=== PATIENT | male | born 1940 | race Caucasian/White ===

== ENCOUNTER → 2017-03-20 | Outpatient (CLI) | payer BC ==
[~2017-03-20] MED LIST: ALTACE PO; ALTACE10 M2 PO; AMLODIPINE BESYL5 MG PO; ASPIRIN PO; CENTRUM SILVER1 EAC4 PO; CERTAGEN PO; CLOPIDOGREL75 MG PO; COENZYME Q10; COQ10-VIT E 201 EACH PO; COREG PO; COREG12.5 MG PO; FISH OIL 1,0001 CAP PO; LAMICTAL PO; LIPITOR PO; LIPITOR40 MG PO; LO-DOSE ASPIRIN81 M1 PO; LOVAZA1 GM PO; PLAVIX PO; PRILOSEC PO; PSYLLIUM
[2017-03-20 12:01] LABS: HEMATOCRIT 44.5 % (38.0-50.0); HEMOGLOBIN 14.9 gm/dL (13.0-16.0); MEAN CELL VOLUME 101.4 FL (83-96); MEAN CORPUSCULAR HGB CONC 33.5 g/dL (30-36); MEAN PLATELET VOLUME 9.2 FL (6.5-11.5); RED BLOOD COUNT 4.38 X10e (3.90-5.60); RED CELL DISTRIBUTION WIDTH 12.9 % (11.0-15.5); WHITE BLOOD COUNT 5.5 X10e3 (4.0-10.5)
[2017-03-20 12:30] LABS: BUN/CREATININE RATIO 17.5; CALCIUM SERUM 9.6 mg/dL (8.4-10.2); CREATININE SERUM 0.8 mg/dL (0.6-1.4); GLOM FILT RATE Estimated 85.6 mL/min (>60); POTASSIUM 4.5 mmol/L (3.5-5.1)
[2017-03-20 12:34] LABS: URINE APPEARANCE CLEAR; URINE BILIRUBIN NEG (NEG); URINE BLOOD NEG (NEG); URINE COLOR YELLOW; URINE GLUCOSE NEG (NEG); URINE KETONE NEG (NEG); URINE LEUKOCYTE ESTERASE NEG (NEG); URINE NITRATE NEG (NEG); URINE PH 6.5 (5-8); URINE PROTEIN NEG (NEG); URINE SPECIFIC GRAVITY 1.022 (1.003-1.035)
[2017-03-20 12:47] LABS: URINE SOURCE CLEAN CATCH
[2017-03-20 12:48] LABS: CULTURE INDICATED? NO
== END | disposition home or self-care (01) ==
LOC: CAMB 10:25
PROVIDERS: Orthopaedic Surgery
DX: Z01.812 Encounter for preprocedural laboratory examination (principal); M19.071 Primary osteoarthritis, right ankle and foot
CPT/HCPCS: 36415; 80048; 81003; 85027; 87070

== ENCOUNTER 2017-04-03 05:16 | Inpatient (IN) | payer BC ==
[~2017-04-03] VITALS: Ht 180.3 cm; Wt 86.2 kg
--- NOTE | ~2017-04-03 | EKG ---
PATIENT: BETTYE CANCHOLA UNIT #: [id number] Ventricular Rate: 70 BPM Atrial Rate: 76 BPM QRS Duration: 132 ms Q-T Interval: 406 ms QTC Calculation(Bezet): 438 ms Calculated R [place]: -8 degrees Calculated T [place]: 10 degrees Diagnosis Line: Atrial fibrillation Diagnosis Line: Non-specific intra-ventricular conduction block Diagnosis Line: Nonspecific T wave abnormality , probably Diagnosis Line: digitalis effect Diagnosis Line: Abnormal ECG Diagnosis Line: No previous ECGs available Diagnosis Line: Confirmed by KASSIE GOMES MD ([id number]) on 04/04/2017 Diagnosis Line: 7:27:31 PM INTERPRETING MD: MIREYA ROYAL
--- NOTE | ~2017-04-03 | HP ---
Unit #: [id number] #: [id number] Patient: BETTYE CANCHOLA [id number] [facility]. [place], [place] [address] [id number] I MR#: [id number] NAME: BETTYE CANCHOLA. ROOM: Age: Sex: M Admission Date: 04/03/2017 : 1940 Attending Physician: Oly Hdez M.D. Primary Care Physician: Keon Garcia M.D. HISTORY AND PHYSICAL CHIEF COMPLAINT Right foot and ankle pain. HISTORY OF PRESENT ILLNESS The patient is a 77-year-old male with right ankle pain and right foot pain, which has been unresponsive to conservative care. 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 He now has pain when walking more than about 100 yards. He has pain with activities of daily living. He has failed bracing and treatment in a Cam Walker Boot. He has also been treated with an injection into the ankle joint. He has 8 degrees of clinical hindfoot varus. X-rays show endstage arthritis of the right ankle with [id number] opposition of the superior medial tibiotalar joint space, as well as significant uncovering of the talonavicular joint measuring 50%. He is able to do a single heel rise, and this demonstrates that his posterior tibial tendon is intact. He has failed nonoperative care and is, therefore, admitted for elective right total ankle arthroplasty, talonavicular joint fusion and possible medial malleolar osteotomy with Brostrom lateral ankle reconstruction. PAST MEDICAL HISTORY Remarkable for atherosclerosis, basal cell carcinoma, coronary ostial stenosis, diabetes mellitus, hypertension. PAST SURGICAL HISTORY Coronary artery bypass graft, coronary artery stent placement. HOME MEDICATIONS Aspirin, atorvastatin, carvedilol, Plavix, coenzyme Q10, hydrocodone, lamotrigine, multivitamins, omega 3 fatty acids, ramipril, Viagra. ALLERGIES None. SOCIAL HISTORY The patient is a former smoker. He is . He denies illicit drug use. He drinks alcohol socially. FAMILY HISTORY Congestive heart failure. REVIEW OF SYSTEMS Unremarkable. PHYSICAL EXAMINATION Unit #: [id number] #: [id number] Patient: BETTYE CANCHOLA HEIGHT/WEIGHT: Height 5'11", weight 197 pounds. GENERAL: This is a well-developed, well-nourished male in no acute distress. HEENT: Pharynx is clear. NECK: The neck is supple without masses. HEART: Heart exam reveals a regular sinus rhythm without murmurs or gallops. LUNGS: The lungs are clear. ABDOMEN: The abdomen is soft and nontender without masses or organomegaly. EXTREMITIES: Evaluation of the right foot shows a pes planus deformity. The heel, however, is surprisingly in 8 degrees of varus. Sensation is normal. Pulses are normal. Motor exam is normal. Posterior tibial tendon is intact. He is able to do a single heel rise. DIAGNOSTIC STUDIES IMAGING: Standing x-rays of the right foot show pes planus deformity with 50% uncovering of the talonavicular joint, a relatively well-maintained lateral talar first metatarsal angle, 15-degree calcaneal pitch and 5 mm medial cuneiform height. Standing x-rays of the right ankle show [id number] opposition of the medial tibiotalar joint with 20 degrees of tibiotalar joint tilt with respect to the long axis of the tibia. The patient does have some contained ankle varus with 13 degrees of tibiotalar joint varus. There is significant uncovering of the talar head on the AP view of the ankle x-ray. IMPRESSION 1. 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 2. Right forefoot abduction secondary to significant uncovering of the talonavicular joint. PLAN The patient has failed nonoperative care. He is, therefore, admitted for elective right total ankle arthroplasty using the Nitza Talaris implant. We will also perform a talonavicular fusion to address his midfoot deformity. He will require Brostrom lateral ankle ligamentous reconstruction for his (1) lateral ankle ligaments. Finally, he may require a lengthening medial malleolar osteotomy since his medial malleolus is quite horizontal on the AP view of his ankle x-ray. This procedure was described in detail, along with the risks of bleeding, infection, nerve damage, the need for further surgery in the future, prolonged recovery time, deep venous thrombosis, pulmonary embolism, loosening of the prosthesis, infection of the prosthesis, need for multiple revision surgeries to include fusion, recurrent deformity, wound healing problems. He understands the above risks and agrees to proceed. Dictated by Justin Hylton/lenny TD: 04/02/2017 14:40 JOB #: [id number] Unit #: [id number] #: [id number] Patient: BETTYE CANCHOLA HISTORY AND PHYSICAL Page 1 of 1 X Pedro Hdez MD X HISTORY AND PHYSICAL
--- NOTE | ~2017-04-03 | CO ---
Unit #: [id number] #: [id number] Patient: BETTYE CANCHOLA [id number] [address] [place], [place] [address] [id number] I MR#: [id number] NAME: BETTYE CANCHOLA. ROOM: [facility] Age: 77 Sex: M Admission Date: 04/03/2017 : 1940 Attending Physician: Oly Hdez M.D. Primary Care Physician: Keon Garcia M.D. Consultation Date: 04/03/2017 CONSULTATION REPORT REASON FOR CONSULTATION Medical management, diabetes. HISTORY OF PRESENT ILLNESS The patient is a 77-year-old male with a past medical history of hypertension, hyperlipidemia, coronary artery disease, CHF, seizure disorder, and prediabetes, who was admitted by Dr. Hdez for right total ankle arthroplasty. The patient states that he has had at least a one year history of right ankle pain. He has tried bracing and treatment with a walker boot. He also received injections in the ankle joint. He has had persistent pain with activity. Dr. Hdez recommended right ankle surgery which was done today. Regarding the patient's chronic medical conditions, he does have coronary artery disease and is status post coronary artery bypass grafting and stent placement. He also has congestive heart failure with unknown ejection fraction. He sees Dr. Patel as an outpatient. He apparently cleared him for surgery. Regarding the patient's diabetes, the patient states that he is "prediabetic." He is not on any medications and does not routinely check blood sugars at home. The patient states that he had a sleep study and does not have sleep apnea. However, he does have risk factors including age and hypertension. PAST MEDICAL HISTORY 1. Admission to [facility] in 2012 for issues related to his defibrillator (no records). 2. Coronary artery disease, status post coronary artery bypass grafting and stent placement, followed by Dr. Patel. 3. Congestive heart failure with unknown ejection fraction, status post AICD placement. 4. Hypertension. 5. Hyperlipidemia. 6. "Prediabetes." 7. Seizure disorder. The patient states that his last seizure was about 20 years ago. He has been on Dilantin in the past but has been on Lamictal for several years. He was seen by the [facility] in the past. He is not currently followed by a neurologist. PAST SURGICAL HISTORY 1. EGD and colonoscopy in November 2008. 2. Coronary artery bypass grafting. 3. Cardiac stent placement. Unit #: [id number] #: [id number] Patient: BETTYE CANCHOLA 4. AICD placement. 5. Cataract surgery. SOCIAL HISTORY The patient lives with his . He is a former smoker. There is no alcohol use. He typically walks without assistance. FAMILY HISTORY Notable for his brother having congestive heart failure. ALLERGIES No known allergies. HOME MEDICATIONS 1. Ramipril 10 mg daily. 2. Lamictal 200 mg twice daily. 3. Plavix 75 mg daily. 4. Lipitor 40 mg daily. 5. Carvedilol 12.5 mg twice daily. 6. Aspirin 81 mg daily. 7. CoQ10/vitamin E 200/20 daily. 8. Lovaza twice daily. 9. Multivitamin daily. 10. Amlodipine 5 mg daily. REVIEW OF SYSTEMS A complete review of systems is negative except as indicated in the HPI. PHYSICAL EXAMINATION VITAL SIGNS: Temperature is 97.3, pulse 76, respirations 22, and blood pressure 107/60. GENERAL: Patient is a very pleasant male who is awake, alert, and in no acute distress. HEENT: Head is atraumatic. Mucous membranes are moist. NECK: Supple. Trachea is midline. CARDIOVASCULAR: Regular rate and rhythm. LUNGS: Clear to auscultation bilaterally with no increased work of breathing. ABDOMEN: Soft and nontender with bowel sounds present in all four quadrants. EXTREMITIES: There is an Derek bandage about the right lower extremity that is clean, dry, and intact. There is no pedal edema involving the left lower extremity. NEUROLOGIC: The patient is awake and alert. He follows commands. PSYCHIATRIC: Mood and affect are normal. The patient is cooperative. SKIN: Skin of examined areas is warm and dry. DIAGNOSTIC STUDIES LABORATORY: Accu-Chek is 131. ASSESSMENT The patient is a 77-year-old male with: 1. Status post right total ankle arthroplasty. 2. Hypertension. 3. Hyperlipidemia. 4. History of coronary artery disease. 5. Congestive heart failure with unknown ejection fraction. 6. Seizure disorder, maintained on Lamictal. Unit #: [id number] #: [id number] Patient: BETTYE CANCHOLA 7. "Prediabetes" not on any medication. 8. Increased risk of obstructive sleep apnea. PLAN 1. Regarding diabetes, I have ordered hemoglobin A1c, as well as low-dose sliding scale insulin with Accu-Cheks. 2. Regarding the patient's other chronic medical conditions, his home medications have been restarted. 3. Regarding increased risk of obstructive sleep apnea, I have ordered obstructive sleep apnea protocol. Thank you very much for the consultation. We will follow the patient along closely with you. Dictated by... Chani Osborn M.D. SHAHRAM/le TD: 04/03/2017 18:30 JOB #: [id number] CONSULTATION REPORT Page 1 of 1 X Chani Osborn MD X CONSULTATION REPORT
--- NOTE | ~2017-04-03 | CO ---
Unit #: [id number] #: [id number] Patient: BETTYE CANCHOLA [id number] [address] [place], [place] [address] [id number] I MR#: [id number] NAME: BETTYE CANCHOLA. ROOM: 460 Age: 77 Sex: M Admission Date: 04/03/2017 : 1940 Attending Physician: Oly Hdez M.D. Primary Care Physician: Keon Garcia M.D. CONSULTATION REPORT REASON FOR CONSULTATION Atrial fibrillation. HISTORY OF PRESENT ILLNESS This is a 77-year-old white male, who is known to Dr. Patel that has a history of coronary artery disease where he underwent coronary artery bypass graft x1 with WILLIS to the LAD in 1997. Prior to his open heart surgery, he had stent placement to the mid LAD. His last cardiac catheterization was in 2003 where he was found to have WILLIS to the LAD patent. His [place] right coronary artery and LAD was 100% occluded. There was 80% stenosis to the AV groove of the circumflex artery that was stented. He had a Lexiscan Cardiolite stress test in October of this year that showed no ischemia. He is known to have chronic systolic heart failure where his ejection fraction per cardiac catheterization in 2003 shows an ejection fraction of 25% to 30%. He had an AICD placed. The patient is admitted status post right ankle replacement. He was noted to have an irregular heartbeat. An EKG revealed atrial fibrillation with a controlled rate. The patient was unaware of palpitations. He had no complaints of chest pain or dyspnea. When he got up today, he had an episode of dizziness that resolved. In review of rhythm strips, he has been in atrial fibrillation throughout his admission. His preoperative EKG on January 10, 2017, showed normal sinus rhythm. His blood pressure is stable but he briefly was on Jett-Synephrine during surgery that was discontinued. His hemoglobin is stable. He has no prior history of bleeding in the past. PAST MEDICAL HISTORY 1. Cardiac catheterization, August 01, 2004, shows an ejection fraction equal to 25% to 30%. Left anterior descending artery 100%. Circumflex artery 80% ostial at the AV groove. Right coronary artery 100%. WILLIS to the LAD patent. 2. Coronary artery bypass graft with WILLSI to the LAD, December 05, 1997. 3. PCI and stent to the mid LAD, August 11, 1997. 4. PCI with drug-eluting stent to the AV groove of the circumflex artery, August 01, 2004. 5. Ischemic cardiomyopathy, status post guided AICD, August 02, 2004, per Dr. Gomez. 6. Chronic systolic heart failure with ejection fraction of 25% to 30%. 7. A 2D echocardiogram, October 17, 2016, shows an ejection fraction of 43% with mild tricuspid regurgitation. Right ventricular systolic pressure 35 mmHg. 8. Lexiscan Cardiolite stress test, October 17, 2016, shows an ejection fraction of 38%. There is no reversible ischemia. There was a Unit #: [id number] #: [id number] Patient: BETTYE CANCHOLA medium-sized apical mid and basilar anterior and anteroseptal myocardial infarction. 9. Hypertension. 10. Hyperlipidemia. 11. Seizure disorder. 12. Former smoker. PAST SURGICAL HISTORY As stated above. SOCIAL HISTORY The patient is and a retired after school program coordinator. He quit smoking more than 50 years ago. He denies illicit drug and alcohol use. FAMILY HISTORY Positive for heart disease in his brother. ALLERGIES No known drug allergies. HOME MEDICATIONS 1. Altace 10 mg daily. 2. Lamictal 200 mg b.i.d. 3. Plavix 75 mg daily. 4. Lipitor 40 mg daily. 5. Carvedilol 12.5 mg b.i.d. 6. Aspirin 81 mg daily. 7. COQ-10 one cap q. evening. 8. Lovaza one tablet b.i.d. 9. Centrum Silver one tablet daily. 10. Amlodipine 5 mg daily. REVIEW OF SYSTEMS A 10-point review of systems negative except details stated in the HPI. PHYSICAL EXAMINATION VITAL SIGNS: Blood pressure 126/79, heart rate 63, temperature 97.6. GENERAL: This is a well-developed 77-year-old pleasant white male who is in no acute distress. NEUROLOGIC: He is awake, alert, and oriented. There is no focal weaknesses. NECK: Trachea is midline. No thyromegaly, lymphadenopathy. No jugular venous distention. HEART: S1, S2 heart sounds are normal. No murmurs. No rubs. No clicks. Irregularly irregular rhythm. LUNGS: With expiratory wheezes and diminished breath sounds both lungs. No rhonchi or rales. ABDOMEN: Soft, nontender with bowel sounds present. EXTREMITIES: Left lower extremity without edema. Right lower extremity in soft cast. DIAGNOSTIC STUDIES LABORATORY: Hemoglobin 15.8, hematocrit 46.9, platelet count 237,000. White count 8.8, sodium 137, potassium 5, BUN 18, creatinine 1.3, glucose 271. Magnesium 1.9. IMAGING: Chest x-ray shows no active disease. Unit #: [id number] #: [id number] Patient: BETTYE CANCHOLA CTA of the chest shows no pulmonary embolism. There is mild emphysematous changes. Noted for atelectasis. CARDIOVASCULAR: Electrocardiogram shows atrial fibrillation with controlled ventricular rate of 70 beats per minute with nonspecific QRS widening. IMPRESSION 1. Status post right ankle replacement. 2. New-onset atrial fibrillation with rapid ventricular response of unknown duration. 3. History of coronary artery disease, status post coronary artery bypass graft with stent to the circumflex artery in 2003. 4. Chronic systolic heart failure with an ejection fraction of 43%. 5. Ischemic cardiomyopathy, status post AICD. 6. Questionable chronic obstructive pulmonary disease. 7. Hypertension. 8. Hyperlipidemia. PLAN 1. Cardiology was consulted for atrial fibrillation. The duration is unknown. The rate is controlled. Will have AICD device interrogated. Continue beta james for now. 2. The patient has a CHADS 2 VASc of 4. He requires long-term anticoagulation for stroke prevention. He is currently on dual antiplatelet therapy with aspirin and Plavix. Will discontinue Lovenox and Plavix. Continue aspirin and add Xarelto. therapeutic case manager will obtain the cost of Xarelto. 3. Consider direct current cardioversion in six weeks after full anticoagulation if he remains in atrial fibrillation. 4. No heart failure is noted on examination. 5. Followup with Dr. Patel at discharge. 6. Will follow the patient with you. Thank you for allowing us to assist with this patient's care. Dictated by... Roberto Carlos Gurrola A.P.R.N. for Justin Dang TD: 04/05/2017 12:38 JOB #: [id number] CONSULTATION REPORT Page 1 of 1 X Roberto Carlos Gurrola APRN CONSULTATION REPORT
--- NOTE | ~2017-04-03 | DS ---
Unit #: [id number] #: [id number] Patient: BETTYE CANCHOLA [id number] [address] [place], [place] [address] [id number] I MR#: [id number] NAME: BETTYE CANCHOLA. ROOM: 460 Age: 77 Sex: M Admission Date: 04/03/2017 : 1940 Discharge Date: 04/05/2017 Attending Physician: Oly Hdez M.D. Primary Care Physician: Keon Garcia M.D. DISCHARGE SUMMARY CHIEF COMPLAINT Right ankle and foot pain. HISTORY OF PRESENT ILLNESS The patient is a 77-year-old male with right ankle pain and right foot pain which has been unresponsive to conservative care. 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 He has a pes planus deformity with varus of the ankle. He has failed bracing and treatment in a CAM walker boot. He has had injections into the ankle joint. Standing x-rays of the right ankle show [id number] opposition with marked tibiotalar varus. Clinically the patient has 8 degrees of heel varus. Standing x-rays of the right foot show talonavicular joint un-coverage of 50%. The patient is able to do a single heel rise and this demonstrates that he has a posterior tibial tendon which is functioning. He was admitted for right ankle replacement and talonavicular fusion. HOSPITAL COURSE The patient was taken to the operating room on the date of admission, where he underwent a right total ankle arthroplasty using the Nitza Talaris implant. He also underwent Brostrom lateral ankle ligamentous reconstruction, lengthening of the medial malleolus, and fusion of the talonavicular joint. There were no operative complications. He had a stable postoperative course. He was seen by the internal medicine service. Dressing was changed on the second postoperative day. Wounds were healing well. He was cleared and ready for discharge to rehabilitation. On the second postoperative day recommendations from cardiology were to discontinue Lovenox and Plavix and to start Xarelto 20 mg every evening. This was instituted. FINAL DIAGNOSIS 1. Right ankle arthritis. 2. Right ankle varus. 3. 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 DISPOSITION/RECOMMENDATIONS 1. The patient is discharged to rehabilitation. He will continue to receive physical therapy and occupational therapy at that location. He is to remain strictly nonweightbearing on his right lower extremity for six weeks. A dressing should stay intact and should not be changed unless directed by Dr. Hdez. If there is a problem with the dressing, please call Dr. Hdez at [phone] for instructions. The patient will continue ice and elevation of his right lower extremity. 2. Discharge medications are as follows: Unit #: [id number] #: [id number] Patient: BETTYE CANCHOLA Armen a. Xarelto 20 mg p.o. at nighttime. b. Lamictal 200 mg p.o. b.i.d. c. Lovaza 1 tablet p.o. b.i.d. d. Carvedilol 12.5 mg p.o. b.i.d. e. Amlodipine 5 mg p.o. daily. f. Atorvastatin 40 mg p.o. daily. g. Altace 10 mg p.o. at nighttime. h. CoQ10 vitamin E 200 mg/20 units 1 cap p.o. q.a.m. i. Centrum Silver multivitamin 1 tablet p.o. at nighttime. j. Aspirin 81 mg p.o. q.a.m. k. Percocet 5/325 mg 1 or 2 p.o. q.4 h. p.r.n. pain. l. Zofran 4 mg p.o. q.6 h. p.r.n. nausea. 3. Follow up in my office in 10-14 days for dressing change, stitch removal and application of cast. Call [phone] to confirm the appointment time and date. Dictated by.Justin Vizcaino/kamille TD: 04/05/2017 08:40 JOB #: [id number] CC: Oly Hdez M.D. DISCHARGE SUMMARY Page 1 of 1 X Pedro Hdez MD X DISCHARGE SUMMARY
--- NOTE | ~2017-04-03 | OR ---
Unit #: [id number] #: [id number] Patient: BETTYE CANCHOLA [id number] [facility]. [place], [place] [address] [id number] MR#: [id number] NAME: BETTYE CANCHOLA. ROOM: [facility] Date of Procedure: 04/03/2017 Admission Date: 04/03/2017 Surgeon: Oly Hdez M.D. : 1940 Attending Physician: Oly Hdez M.D. Primary Care Physician: Keon Garcia M.D. OPERATIVE REPORT PREOPERATIVE DIAGNOSES 1. Right ankle degenerative arthritis. 2. Significant right tibiotalar varus. 3. 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 POSTOPERATIVE DIAGNOSES 1. Right ankle degenerative arthritis. 2. Significant right tibiotalar varus. 3. 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 PROCEDURES PERFORMED 1. Right total ankle arthroplasty (40214). 2. Right medial malleolar lengthening osteotomy (69272). 3. Right talonavicular fusion (21385). 4. Right lateral ankle ligamentous Brostrom reconstruction (49070). ASSISTANTS Alysha and Sandra. ANESTHESIA Popliteal saphenous block and general. INDICATIONS FOR SURGERY The patient is a 77-year-old male with end-stage right ankle arthritis with severe ankle varus and a horizontal medial malleolus. The patient also has significant uncovering of the talonavicular joint measuring 50%. The patient has failed conservative care. He is therefore admitted for fusion of this unstable talonavicular joint which is causing significant pes planus as well as lateral ankle reconstruction with ankle replacement. Risks and benefits of ankle fusion versus ankle replacement have been discussed. He agrees to proceed with ankle replacement. DESCRIPTION OF PROCEDURE The patient was taken to the operating room following popliteal saphenous block. He was placed in supine position. General anesthetic was induced. The right ankle was identified as the correct operative location during the time-out procedure. The right leg was then prepped and draped in usual sterile fashion. The leg was exsanguinated and the thigh tourniquet inflated to 300 mmHg. An anterior longitudinal incision was made over the ankle measuring 12 cm. The subcutaneous tissue was divided. The Unit #: [id number] #: [id number] Patient: BETTYE CANCHOLA superficial peroneal nerve was identified and preserved. The extensor retinaculum was opened. The interval between the extensor hallucis and anterior tibial tendons were opened and the neurovascular bundle was retracted laterally. The joint was exposed subperiosteally. There was a large distal tibial osteophyte which then was excised with the power osteotome. The Nitza Talaris System was used for ankle replacement. The tibial alignment guide was pinned to the tibial tuberosity into the distal tibia aligning the guide antoine with the long axis of the tibia. An 8 mm resection was set, rotation was set. The tibia was sized at a #2 and the talus was sized at a #2. A #2 cutting block was then applied. The three drill holes were placed medially and laterally and the tibial cut was made. The anterior half of the tibial cut bone was removed in a piecemeal fashion. The talar pin setting guide was then applied and the talar pin was placed in the talus. The posterior talar cutting guide was then applied over the pin and four pins were placed into the posterior talus. Ribbon retractors were placed and the four pins were then used as a guide while the posterior talar cut was made. The posterior talar bone was removed and the remainder of the distal tibial cut bone was removed. The anterior talar cutting guide was then applied and pinned into place. The anterior talar neck was then milled. Finally, the lateral talar cutting guide was centered on the talus and pinned into place. The Hill saw was used and the lateral talar cut was made. Because the patient exhibited significant lateral ligamentous laxity and there was a significant gap between the medial tibia and medial malleolus due to the horizontal orientation of the medial malleolus, a lengthening osteotomy of the medial malleolus was required. The #2 talar trial and tibial trial were placed. The microsagittal saw was then used to make a vertical osteotomy of the medial malleolus beginning at the medial edge of the tibial trial and then going vertically. This afforded nice 4 cm long osteotomy. The medial malleolus was then displaced distally approximately 8 mm. A bone clamp was used to reduce the osteotomy and then the osteotomy was fixated with two Guevara 4.0 mm diameter cannulated screws placed from medial to lateral. Care was taken to angle the screws proximally to avoid the keel of the tibial component. The three drill holes were then placed in the distal tibia. The holes were connected with the chisel and then the rasp was used. The wound was copiously irrigated. The final #2 talar component was impacted into place. The 9 mm insert was then fixed to the #2 tibial implant and then the tibial implant was impacted into place. A curvilinear incision was then made over the distal fibula. The subcutaneous tissue was divided. The joint capsule was opened. Osteophytes were removed. A 5.5 mm diameter Arthrex suture anchor was then placed in the distal fibula at the location of the anterior talofibular ligament. The joint capsule was then advanced proximally and laterally utilizing the two attached #2 FiberWire sutures to the anchor. This afforded an excellent repair of the lateral capsule with imbrication and tightening of the lateral capsule. The lateral capsule was then oversewn with multiple 2-0 Vicryl agbrfl-oi-jstwz sutures. This Unit #: [id number] #: [id number] Patient: BETTYE CANCHOLA eliminated the talar tilt. AP and lateral mini C-arm fluoroscopic views documented satisfactory position of the implants as well as the suture anchor. A 3-minute dilute Betadine wash was then applied and then the joint was lavaged with normal saline. The anterior distal tibial keel was then packed with morselized bone graft taken from the distal tibia, and this was impacted into place. A 5 cm medial longitudinal incision was then made over the talonavicular joint. Subcutaneous tissue was divided. The joint capsule was opened and the joint was exposed subperiosteally. The power osteotome, curved curettes, and rongeurs were utilized to remove the articular cartilage from both sides of the talonavicular joint. The underlying subchondral bone was feathered with the power osteotome. 1.5 mL of [employer] augment platelet derived growth factor was then placed in the talonavicular joint. An additional autogenous cancellous bone graft taken from the distal tibial pieces removed during the ankle replacement were then morselized and placed into the talonavicular joint. The talonavicular joint was then reduced by adducting the navicular onto the talar head. It was fixated with an OrthoHelix 5.5 mm diameter cannulated screw placed from distal to proximal. Excellent fixation was achieved. An intraoperative C-arm fluoroscopy documented satisfactory screw position. The tourniquet was released with a total tourniquet time of 2 hours and 10 minutes. The ankle joint capsule was closed meticulously with 2-0 Vicryl [id number]-lbqef sutures. The extensor retinaculum was closed with 2-0 Vicryl hvirik-vb-cbzzt sutures. Subcutaneous tissue was closed with 3-0 Vicryl, and the skin was closed with 3-0 nylon horizontal mattress sutures. Xeroform gauze, dressing, sponges, Webril, and a posterior fiberglass splint were applied. The patient was then transported to the recovery room in stable condition. ESTIMATED BLOOD LOSS 100 mL. COMPLICATIONS None. SPECIMENS None. TOURNIQUET TIME 2 hours 10 minutes. Dictated byJustin Powell/chelsey TD: 04/04/2017 10:36 JOB #: [id number] Unit #: [id number] #: [id number] Patient: BETTYE CANCHOLA OPERATIVE REPORT Page 1 of 1 X Pedro Hdez MD X PROCEDURE OPERATIVE NOTE
[2017-04-04 03:23] LABS: BASOPHIL% 0.4 % (0-2.5); DIFF IND NO; EOSINOPHIL# 0.1 X10e3 (0-0.7); EOSINOPHIL% 1.1 % (0.0-7.0); HEMATOCRIT 40.7 % (38.0-50.0); HEMOGLOBIN 13.4 gm/dL (13.0-16.0); LYMPHOCYTE# 1.7 X10e3 (1.0-3.5); LYMPHOCYTE% 19.7 % (17.0-45.0); MEAN CELL VOLUME 101.7 FL (83-96); MEAN CORPUSCULAR HEMOGLOBIN 33.4 PG (28-34); MEAN CORPUSCULAR HGB CONC 32.9 g/dL (30-36); MEAN PLATELET VOLUME 8.6 FL (6.5-11.5); MONOCYTE# 1.4 X10e3 (0-1.0); MONOCYTE% 16.6 % (3.0-12.0); NEUTROPHIL# 5.4 X10e3 (1.5-7.1); NEUTROPHIL% 62.2 % (40-75); PLATELET COUNT 181 X10e3 (140-420); WHITE BLOOD COUNT 8.7 X10e3 (4.0-10.5)
[2017-04-04 03:48] LABS: ALBUMIN SERUM 3.7 g/dL (3.5-5.0); BILIRUBIN,TOTAL 0.8 mg/dL (0.2-2.0); BUN/CREATININE RATIO 11.25; CALCIUM SERUM 8.7 mg/dL (8.4-10.2); CREATININE SERUM 0.8 mg/dL (0.6-1.4); GLOM FILT RATE Estimated 85.6 mL/min (>60); PROTEIN TOTAL SERUM 6.1 g/dL (6.0-8.3)
[2017-04-05 03:40] LABS: BUN/CREATININE RATIO 11.42; CALCIUM SERUM 9.1 mg/dL (8.4-10.2); CREATININE SERUM 0.7 mg/dL (0.6-1.4); GLOM FILT RATE Estimated 90.4 mL/min (>60); MAGNESIUM 1.9 mg/dL (1.6-3.0); POTASSIUM 4.9 mmol/L (3.5-5.1)
== END 2017-04-05 18:15 | DRG 470 ==
LOC: CSUR 05:16 → CPACUOF 08:33 → CSUR 08:33 → CPACUOF 09:30 → C4B 14:19
PROVIDERS: Family Medicine; Orthopaedic Surgery
PROC: 0SGH04Z Fusion of Right Tarsal Joint with Internal Fixation Device, Open Approach (ICD-10-PCS; 2017-04-03)
PROC: 0SRF0JZ Replacement of Right Ankle Joint with Synthetic Substitute, Open Approach (ICD-10-PCS; principal; 2017-04-03 07:30)
PROC: 0YQK0ZZ Repair Right Ankle Region, Open Approach (ICD-10-PCS; 2017-04-03 07:30)
PROC: 0SGH07Z Fusion of Right Tarsal Joint with Autologous Tissue Substitute, Open Approach (ICD-10-PCS; 2017-04-03 07:30)
DX: M19.071 Primary osteoarthritis, right ankle and foot (principal); I11.0 Hypertensive heart disease with heart failure; I50.22 Chronic systolic (congestive) heart failure; G40.909 Epilepsy, unspecified, not intractable, without status epilepticus; I48.91 Unspecified atrial fibrillation; J44.9 Chronic obstructive pulmonary disease, unspecified; E78.5 Hyperlipidemia, unspecified; I25.10 Atherosclerotic heart disease of native coronary artery without angina pectoris; E87.1 Hypo-osmolality and hyponatremia; M21.171 Varus deformity, not elsewhere classified, right ankle; M21.6X1 Other acquired deformities of right foot; Z87.891 Personal history of nicotine dependence; Z95.1 Presence of aortocoronary bypass graft; R73.03 Prediabetes; Z95.810 Presence of automatic (implantable) cardiac defibrillator
CPT/HCPCS: 80048; 80053; 82947; 83036; 83735; 85025; 93005; 94760; 97161; 97530; 97535; C1713; C1776; C9113; G8978-GP; G8979-GP; J0690; J0735; J2250; J2270; J2370; J2405; J2795; J3010